=== PATIENT | female | born 1930 | race Caucasian/White ===

== ENCOUNTER → 2017-10-29 | Outpatient (CLI) | payer MEDICARE, OTHER ==
[~2017-10-29] MED LIST: BACTRIM DS TAB1 EACH PO; CALCIUM; CENTRUM CARDIO; HYDROCHLOROTH12.5 MG; LORAZEPAM 0.50.5 MG; MINIPRIN81 MG; PREVACID 24HR15 MG
== END ==
LOC: M.RAD 10:20
DX: Z12.31 Encounter for screening mammogram for malignant neoplasm of breast (principal)

== ENCOUNTER → 2018-10-30 | Outpatient (CLI) | payer MEDICARE, OTHER | LOC: M.RAD 15:00 | DX: Z12.31 Encounter for screening mammogram for malignant neoplasm of breast (principal) ==